=== PATIENT | female | born 1965 | race Caucasian/White ===

== ENCOUNTER → 2022-06-27 15:25 | Outpatient (CLI) | payer MEDICAID, SELFPAY ==
[2022-06-27 15:35] LABS: Benzodiazepines Screen,Urine Negative ng/ml (<200)
[2022-06-27 15:36] LABS: Amphetamine/Metha Screen,Urine Negative ng/ml (<1000)
[2022-06-27 15:37] LABS: Barbiturates Screen,Urine Negative ng/ml (<200); Methadone Screen,Urine Negative ng/ml (<300)
[2022-06-27 15:38] LABS: Cannabinoid Screen,Urine Negative ng/ml (<50)
[2022-06-27 15:39] LABS: Cocaine Screen,Urine Negative ng/ml (<300); Opiate Screen,Urine Negative ng/ml (<300)
[2022-06-27 15:40] LABS: Phencyclidine Screen,Urine Negative ng/ml (<25)
== END ==
PROVIDERS: PCP Nurse Practitioner Family; Visit Provider Nurse Practitioner Family
DX: Z79.899 Other long term (current) drug therapy (principal)
CPT/HCPCS: 80305

== ENCOUNTER → 2022-08-01 15:10 | Outpatient (POV) | payer MEDICAID, SELFPAY ==
[2022-08-01 15:48] VITALS: BP 89/55; PULSE 93; RESP 18; O2SAT 97; BMI 16.0
--- NOTE | 2022-08-01 16:23 | EXP.PAIN.OV ---
HPI Data of Consult Patient: new to practice Consult date: 08/01/22 Requesting Physician: Susan Alvarenga APRN Primary Care Provider: Rosendo Lira APRN Consult Narrative Reason for consult: Low back pain, joint pain History of present illness: Ms. Wood is a 56 year old female who presents today as a new patient. She is a referral from [facility] office. She rates her pain today a 10 out of 10. Patient states her pain is all in her back and all over at her joints. Patient states this has been going on for years and progressively worsened over time. Patient states that she has been in pain management in the past and does believe it was possibly Dr. Alicia's office in [place]. She states this was years ago. Patient does have significant comorbidities including emphysema, pulmonary hypertension, history of cardiac issues, history of blood clots in her lungs, gallbladder disease, degenerative disc disease. She does use continuous oxygen due to her respiratory function. Patient has been told she is a nonsurgical candidate because of the condition of her lungs and overall health. Patient has also been told in the past that she could not do injections because it would be too many areas. Patient denies any recent imaging. She has tried [id number] Tylenol and heat and ice with no additional improvement. Patient has had physical therapy in the past however she states this made her symptoms much worse. She is on blood thinners for her previous history of PEs. She has been prescribed Percocet 7.5 mg 3 times a day and gabapentin 600 mg 3 times [address] Weiner office. Patient denies any side effects from this medication however she states she does not notice significant improvement. Her Demetrius is [id number]. Its been reviewed and appropriate. CC: Susan Alvarenga APRN [facility] Disclaimer: The information contained in this section may have been updated after the patient was seen, as this information can be updated by other users. Medical History (Updated 08/01/22 @ 16:28 by Susan Alvarenga APRN) COPD (chronic obstructive pulmonary disease) FO (foramen ovale) GERD (gastroesophageal reflux disease) Neuropathy Pulmonary emboli Pulmonary HTN Social History (Updated 08/01/22 @ 15:55 by Samina Almendarez RN) Smoking Status: Current every day smoker alcohol intake: never current occupational status: disabled Travel in the last 8 weeks: None Review of Systems Review of Systems Review of systems:: pertinent systems reviewed and negative unless documented below Review of systems (narrative): Review of Systems: General: No recent weight changes, no fever, no sleep disturbances Respiratory: No cough, no shortness of air, no recurring pulmonary infections Cardiovascular/peripheral vascular: No chest pain, no palpitations, no edema, no shortness of breath Gastrointestinal: No new onset incontinence, normal bowel movements reported Genitourinary: No new onset incontinence Musculoskeletal: Low back pain, generalized joint pain Psychiatric: [Normal mood/affect] Neurological: [Denies weakness in extremities], [denies balance issues] Meds Home Medications and Allergies Home Medications Medication Instructions Recorded Confirmed Type albuterol sulfate 90 mcg/actuation 2 puff inhalation Q4-6H PRN 06/27/22 08/01/22 Rx aerosol inhaler shortness of breath or wheezing #8.5 grams ambrisentan 10 mg tablet 10 mg PO DAILY PULMONARY HTN 06/27/22 08/01/22 History apixaban 5 mg tablet (Eliquis) 5 mg PO BID Blood thinner 06/27/22 08/01/22 History fluoxetine 40 mg capsule 40 mg PO DAILY MOOD 06/27/22 08/01/22 History furosemide 20 mg tablet 20 mg PO DAILY Fluid 06/27/22 08/01/22 History ipratropium 0.5 mg-albuterol 3 mg 3 ml inhalation QID PRN BREATHING 06/27/22 08/01/22 History (2.5 mg base)/3 mL nebulization soln loratadine 10 mg tablet (Allergy 10 mg PO DAILY ALLERGIES 06/27/22 08/01/22 History Relief (loratadine))
== END ==
PROVIDERS: PCP Nurse Practitioner Family; Visit Provider Nurse Practitioner Family
DX: M54.16 Radiculopathy, lumbar region (principal); M54.50 Low back pain, unspecified; M54.2 Cervicalgia; M25.50 Pain in unspecified joint
CPT/HCPCS: 99202; G0463